=== PATIENT | female | born 1975 | race Two or more races ===

== ENCOUNTER 2019-03-14 17:01 | Emergency (ER) | payer SELFPAY ==
[~2019-03-14] VITALS: Ht 167.6 cm; Wt 74.8 kg
[~2019-03-14 17:01] MED LIST: IBUP-2030 PO
[2019-03-14] MEDS ORDERED: SODIUM CHLORIDE 0.9% 500 ML IV ONE (21:00)
[2019-03-14] MEDS ORDERED: METOCLOPRAMIDE HCL 10MG/2ML VIAL IV ONE (21:00)
[2019-03-14] MEDS ORDERED: DIPHENHYDRAMINE 50MG/ML VIAL IV ONE (21:00)
[2019-03-14 22:23] VITALS: BP 132/72
== END 2019-03-14 22:28 | disposition home or self-care (01) ==
LOC: ER 17:01
DX: G43.909 Migraine, unspecified, not intractable, without status migrainosus (principal); Z98.890 Other specified postprocedural states
CPT/HCPCS: 96374; 96375; 99283; J1200; J2765; J7040; Z7610